=== PATIENT | male | born 1955 | race Caucasian/White ===

== ENCOUNTER 2023-10-02 00:25 | Emergency (ER) | payer OTHER ==
[~2023-10-02] VITALS: Ht 172.7 cm; Wt 87.5 kg
[2023-10-02 01:22] VITALS: O2SAT 96
[2023-10-02 01:49] LABS: HEMATOCRIT. 41.1 % (42.0-52.0); MEAN CORPUSCULAR HEMOGLOBIN 29.6 pg (28.0-32.0); MEAN PLATELET VOLUME 11.2 fl (7.4-10.4); PLATELET 121 x1000/uL (130-400); RED BLOOD CELL COUNT 4.72 mill/uL (4.7-6.1); RED CELL DISTRIBUTION WIDTH 14.5 % (11.6-14.6); WHITE BLOOD COUNT 14.7 x1000/uL (4.5-11.0)
[2023-10-02 01:53] LABS: DIFFERENTIAL COMMENT 1
[2023-10-02 02:14] LABS: CLARITY URINE CLOUDY (CLEAR); COLOR URINE DARK YELLOW (YELLOW); GLUCOSE URINE NEGATIVE (NEGATIVE); KETONES URINE 3+ (NEGATIVE); LEUKOCYTE ESTERASE URINE 2+ (NEGATIVE); NITRITE URINE NEGATIVE (NEGATIVE); OCCULT BLOOD URINE 2+ (NEGATIVE); PROTEIN URINE 1+ (NEGATIVE); SPECIFIC GRAVITY URINE 1.031 (1.005-1.030); UROBILINOGEN URINE 0.2 E.U./dL (0.2-1.0)
[2023-10-02 02:18] LABS: ALANINE AMINOTRANSFERASE 21 IU/L (10-49); ALBUMIN 4.8 g/dL (3.2-4.8); ASPARTATE AMINOTRANSFERASE 20 IU/L (<34); BILIRUBIN TOTAL 0.9 mg/dL (0.1-1.0); CARBON DIOXIDE 27 mEq/L (21-32); CHLORIDE 103 mEq/L (98-107); CREATININE 0.9 mg/dL (0.6-1.3); GLUCOSE 153 mg/dL (70-105); POTASSIUM 3.9 mEq/L (3.5-5.1); PROTEIN TOTAL 7.9 g/dL (6.0-8.3); SODIUM 136 mEq/L (136-145); UREA NITROGEN BLOOD 15 mg/dL (9-23)
[2023-10-02 02:33] LABS: BACTERIA URINE 1+; RBC URINE 25-50 /hpf (0-2); SQUAMOUS EPITHELIAL CELL URINE FEW /lpf (RARE/1+); WBC URINE 50-100 /hpf (0-2)
[2023-10-02 02:47] LABS: PLATELET ESTIMATE SLIGHTLY DECREASED
[2023-10-02] MEDS ORDERED: DOXY100C5 MT (04:20)
[2023-10-02] MEDS ORDERED: SULF1TAB48 MT (04:20)
[2023-10-02] MEDS: CEFTRIAXONE SODIUM 500MG VIAL IM ONE (04:28)
[2023-10-02] MEDS: DOXYCYCLINE HYCLATE 100MG CAPSULE PO ONE (04:28)
[2023-10-02] MEDS: KETOROLAC 30MG/ML VIAL IM ONE (04:29)
[2023-10-02] MEDS: LIDOCAINE HCL 1% 20ML VIAL (Pyxis) INJ INFIL ONE (04:29)
[2023-10-02 05:00] VITALS: BP 126/69; PULSE 100; RESP 16; TEMP 101.5
== END 2023-10-02 05:00 | disposition home or self-care (01) ==
LOC: ER 00:25
DX: I10 Essential (primary) hypertension (principal); N39.0 Urinary tract infection, site not specified
CPT/HCPCS: 99285; 93976; 80053; 81003; 83690; 85025; 87086; 87186; 87077; 36415; 76870; 96372; 82310; J0696; J1885; J3490